=== PATIENT | male | born 1980 | race Asian ===

== ENCOUNTER 2020-02-25 14:23 | Outpatient (CLI) | payer BC ==
--- NOTE | 2020-02-25 15:37 | ULT ---
Scrotal sonogram with duplex evaluation HISTORY: Epididymal cyst. FINDINGS: Right testicle is 3.3 cm length. Good color and spectral Doppler flow. Left testicle measures up to 4.4 cm. Good color and spectral Doppler flow. Small cysts in a linear co nfiguration along the anterior superficial aspect of the testicle measure up to 0.6 cm greatest diameter. At the superior most aspect of the string of cysts is a heterogeneous well-defined complex cystic mass that is 2.2 cm x 1.8 cm x 1.8 cm greatest diameters. There is echogenic peripheral nodularity and mild hypervascularity at the periphery. Small amount of fluid within the left side of the scrotum. At the inferior aspect of the left scrotum , distended vascular structures become more engorged upon Valsalva maneuver. IMPRESSION : Complex cystic mass at the superior pole left testicle. Neoplasm is a primary consideration. 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 It can be associated with von Hippel-Lindau disease. Other possibilities for the lesion would include abscess. Left varicocele/hydrocele.
== END 2020-02-25 14:24 | disposition home or self-care (01) ==
LOC: SCSULT 14:23
PROVIDERS: ATTEND Urology
DX: N50.3 Cyst of epididymis (principal); N44.2 Benign cyst of testis
CPT/HCPCS: 76870; 93976

== ENCOUNTER 2020-03-18 07:28 | Outpatient (CLI) | payer BC, OTHER ==
[2020-03-18 11:15] LABS: #Basophils 0.1 thou/uL (0.0-0.2); #Eosinphils 0.2 thou/uL (0.0-0.7); #Lymphocytes 2.2 thou/uL (1.20-3.40); #Monocytes 0.4 thou/uL (0.11-0.59); #Neutrophils 4.8 thou/uL (1.40-6.50); %Basophils 1.1 % (0.0-1.0); %Eosinophils 2.4 % (0.0-10.0); %Lymphocytes 28.5 % (21.0-51.0); %Monocytes 5.6 % (0.0-10.0); %Neutrophils 62.4 % (42.0-75.0); Hemoglobin 13.4 g/dL (14.0-18.0); Mean Corpuscular HGB CONC 32.2 g/dL (32.0-36.0); Mean Corpuscular Hemoglobin 28.1 pg (27.0-31.0); Mean Corpuscular Volume 87.3 fL (78.0-98.0); Mean Platelet Volume 8.8 fL (7.4-10.4); Platelet Count 393 thou/uL (130-400); RBC Distribution Width 12.4 % (11.5-14.5); Red Blood Cell (RBC) Count 4.78 mill/uL (4.70-6.10); White Blood Cell (WBC) Count 7.7 thou/uL (4.8-10.8)
[2020-03-18 11:44] LABS: Anion Gap 11 mmol/L (10-20); BUN (Urea Nitrogen) 12 mg/dL (8.9-20.6); Calc. Creatinine Clearance 0 mL/min (70-130); Calcium 9.2 mg/dL (7.8-10.44); Carbon Dioxide 27 mmol/L (22-29); Chloride 105 mmol/L (98-107); Estimated GFR-MDRD 84; Glucose 111 mg/dL (70-105); Potassium 4.2 mmol/L (3.5-5.1); Sodium 139 mmol/L (136-145)
[2020-03-18 19:12] LABS: SARS-CoV-2 MS2 Positive; SARS-CoV-2 N Gene Negative; SARS-CoV-2 S Gene Negative; SARS-CoV-2 by NAA Not Detected (NotDetected); SARS-CoV-2 orf1ab Negative
== END 2020-03-18 07:29 | disposition home or self-care (01) ==
LOC: LABBT 07:28
PROVIDERS: ATTEND Urology
DX: Z01.812 Encounter for preprocedural laboratory examination (principal); Z20.828 Contact with and (suspected) exposure to other viral communicable diseases; N44.2 Benign cyst of testis
CPT/HCPCS: 80048; 85025; 87635; U0003

== ENCOUNTER 2020-03-21 11:02 | Day surgery (SDC) | payer BC ==
[2020-03-20 09:55] VITALS: BMI 27.2
[2020-03-21] MEDS ORDERED: PROPOFOL 200 MG/20 ML VIAL ONE (11:41)
[2020-03-21] MEDS ORDERED: Ondansetron PF 4 MG/2 ML Vial ONE (11:41)
[2020-03-21] MEDS ORDERED: Bupivacaine 0.25% HCL 30 ML VIAL ONE (12:14)
[2020-03-21] MEDS ORDERED: Fentanyl 100 MCG/2 ML VIAL ONE (12:30)
[2020-03-21] MEDS ORDERED: Midazolam HCl 2 mg/2 ml Vial ONE ×2 (12:30→12:39)
[2020-03-21] MEDS ORDERED: Bacitracin Zinc Ointment 30 gm TUBE ONE (13:26)
[2020-03-21] MEDS ORDERED: Labetalol HCl 100 MG/20 ML VIAL ONE (14:27)
--- NOTE | 2020-03-21 19:08 | OP ---
DATE OF PROCEDURE: 03/21/2020 PREOPERATIVE DIAGNOSIS: Left testicular mass. POSTOPERATIVE DIAGNOSIS: Left testicular mass. PROCEDURE PERFORMED: Left partial orchiectomy. ANESTHESIA: General, 30 mL of local. COMPLICATIONS: None. ESTIMATED BLOOD LOSS: Minimal. SPECIMEN: Left testicular mass/cyst. DESCRIPTION OF PROCEDURE: After informed consent, the patient was taken to the operating room, transferred to the table under his own power. Anesthesia was established. A time-out was performed showing the correct patient, site, and procedure. Preoperative antibiotics were administered. He was prepped and draped in the supine position. I began by making a transverse incision over the left hemiscrotum, which was carried down through dartos with electrocautery. The testicle inside the tunica vaginalis was delivered and then tunica vaginalis carefully opened. Electrocautery was used to circumscribe the tunica albuginea around the cyst at the superior pole of the testicle. Seminiferous tubules were then carefully dissected away from the cyst which was then passed off in its entirety for frozen sections. While I waited frozen sections, I had to remove a small amount of seminiferous tubules to allow adequate closure of the tunica albuginea. Tunica was closed with 4-0 PDS in a running fashion. The spermatic cord was clamped during excision of the cyst and so, total clamp time which I used a [place] for was less than 5 minutes. I spoke with the pathologist about the frozen sections and he reports that while the etiology is unclear, there is no malignancy identified. This assured me that he did not require radical orchiectomy and so the testicle was delivered back into dartos, which was then copiously irrigated and then dartos was closed with 2-0 Vicryl suture in a running fashion. The skin was closed with 3-0 chromic in an interrupted fashion. The wound was dressed with antibiotic ointment, gauze, and a scrotal support. The patient was awoken from anesthesia, transferred back to his hospital bed and taken to PACU in stable condition, where he will discharge home upon recovery. Job ID: [id number]
== END 2020-03-21 15:45 | disposition home or self-care (01) ==
LOC: SDC 11:02
PROVIDERS: ATTEND Urology
PROC: 0VBB0ZZ Excision of Left Testis, Open Approach (ICD-10-PCS; principal; 2020-03-21)
DX: N44.2 Benign cyst of testis (principal); Z79.899 Other long term (current) drug therapy
CPT/HCPCS: 88305; 88331; J0690; J2250; J2405; J2704; J3010; S0020